=== PATIENT | female | born 1965 | race American Indian/Alaskan Native ===

== ENCOUNTER 2017-05-31 10:16 | Outpatient (CLI) | payer OTHER ==
--- NOTE | 2017-05-31 12:46 | XRay Report ---
XRAY LEFT KNEE 4 THREE VIEWS: 05/31/17 CLINICAL: Left knee pain FINDINGS: Mild osteopenia. Severe osteoarthritis of the medial joint space with complete loss of joint space and large osteophytes. Slight widening of the lateral joint space with lateral osteophytes. Mild varus deformity. Patellofemoral joint arthritis with osteophytes.Suspect a small joint effusion. No fracture or dislocation. Normal soft tissues. IMPRESSION: Osteoarthritis and probable small joint effusion.
== END 2017-05-31 10:17 | disposition home or self-care (01) ==
LOC: SPVIMAG 10:16
PROVIDERS: ATTEND Orthopaedic Surgery
DX: M17.12 Unilateral primary osteoarthritis, left knee (principal); M85.862 Other specified disorders of bone density and structure, left lower leg; M21.162 Varus deformity, not elsewhere classified, left knee

== ENCOUNTER 2021-08-01 09:19 | Outpatient (CLI) | payer OTHER ==
--- NOTE | 2021-08-01 10:22 | XRay Report ---
LUMBAR SPINE 5 VIEWS INDICATION: Z02.71 ENCOUNTER FOR DISABILITY DETERMINATION COMPARISON: None. FINDINGS: No acute, displaced fracture is seen. Alignment is within normal limits. No spondylolysis is seen on the oblique views. Small marginal osteophytes are noted. There is mild disc space narrowing at L5-S1. Disc spaces are ot herwise maintained. CONCLUSION: 1. No acute findings. 2. Mild spondylosis. Signer Name: Mika Gunter MD Signed: 08/01/2021 10:17 AM Workstation Name: [id number]
== END 2021-08-01 09:20 | disposition home or self-care (01) ==
LOC: XRAY 09:19
PROVIDERS: ATTEND Internal Medicine
DX: M47.817 Spondylosis without myelopathy or radiculopathy, lumbosacral region (principal); M48.07 Spinal stenosis, lumbosacral region
CPT/HCPCS: 72100

== ENCOUNTER 2021-08-01 10:17 | Emergency (ER) | payer MEDICAID, OTHER ==
--- NOTE | 2021-08-01 11:23 | Event Note ---
ED Screening Note ED Screening Note: here with 2 d hx dizziness pcp told her to come here pmh chronic pain on 2 meds at home (not narcotics) knee and back pain HR 50- no rate lowering meds pt obese This initial assessment/diagnostic orders/clinical plan/treatment(s) is/are subject to change based on patients health status, clinical progression and re- assessment by fellow clinical providers in the ED. Further treatment and workup at subsequent clinical providers discretion. Patient/guardian urged not to elope from the ED as their condition may be serious if not clinically assessed and managed. Initial orders include: ekg labs
[2021-08-01] MEDS ORDERED: MECLIZINE 25 MG TAB PO ONE (11:40)
--- NOTE | 2021-08-01 11:55 | Emergency Department Report ---
ED Dizziness HPI - General Chief Complaint: Dizziness Stated Complaint: DIZZINESS Time Seen by Provider: 08/01/21 11:11 Source: patient Mode of arrival: Ambulatory Limitations: No Limitations - History of Present Illness Initial Comments: 56-year-old female presents to the hospital with complaints of dizziness/room spinning sensation since yesterday. Symptoms worse with walking and movement. Patient has chronic left ear problems with decreased hearing. Patient is followed by ENT and is currently taking allergy medication to help with symptoms. Patient has nauseous with episodes without vomiting. She denies headache, chest pain, shortness of breath, abdominal pain, nausea, and vomiting. Patient's current medications include Levocetirizine for allergies and Tizanidine 4mg qhs muscle relaxant. - Related Data Previous Rx's Medication Instructions Recorded Last Taken Type Meclizine [Antivert] 25 mg PO TID PRN #30 tab 08/01/21 Unknown Rx Allergies Allergy/AdvReac Type Severity Reaction Status Date / Time Penicillins Allergy Nausea Verified 08/01/21 10:58 ED Review of Systems ROS: Stated complaint: DIZZINESS Other details as noted in HPI Comment: All other systems reviewed and negative ED Past Medical Hx - Medications Home Medications: Home Medications Medication Instructions Recorded Confirmed Last Taken Type Meclizine [Antivert] 25 mg PO TID PRN #30 tab 08/01/21 Unknown Rx ED Physical Exam - General Limitations: No Limitations - Other Other exam information: General: No acute distress Head: Atraumatic Eyes: normal appearance, mild dizziness with left gaze without nystagmus ENT: Moist mucous membranes, bilateral TMs Neck: Normal appearance, no midline tenderness Chest: Clear to auscultation bilaterally CV: Regular rate and rhythm Abdomen: Soft, normal bowel sounds, nontender, nondistended, no rebound or guarding Back: Normal inspection Extremity: Normal inspection, full range of motion Neuro: Alert O x 3, no facial asymmetry, speech clear, no gross motor sensory deficit, [id number] function at Psych: Appropriate behavior Skin: No rash ED Course Vital Signs 08/01/21 10:59 Temperature 97.8 F Pulse Rate 66 Respiratory 18 Rate Blood Pressure 144/91 O2 Sat by Pulse 99 Oximetry ED Medical Decision Making - Lab Data Result diagrams: 08/01/21 11:46 08/01/21 11:46 Lab Results 08/01/21 08/01/21 08/01/21 Range/Units 11:46 11:46 11:49 WBC 3.7 L (4.5-11.0) K/mm3 RBC 4.65 (3.65-5.03) M/mm3 Hgb 13.6 (10.1-14.3) gm/dl Hct 41.9 (30.3-42.9) % MCV 90 (79-97) fl MCH 29 (28-32) pg MCHC 33 (30-34) % RDW 13.9 (13.2-15.2) % Plt Count 127 L (140-440) K/mm3 Lymph % (Auto) 48.2 H (13.4-35.0) % [place] % (Auto) 5.9 (0.0-7.3) % Eos % (Auto) 1.6 (0.0-4.3) % Baso % (Auto) 0.4 (0.0-1.8) % Lymph # (Auto) 1.8 (1.2-5.4) K/mm3 [place] # (Auto) 0.2 (0.0-0.8) K/mm3 Eos # (Auto) 0.1 (0.0-0.4) K/mm3 Baso # (Auto) 0.0 (0.0-0.1) K/mm3 Seg Neutrophils % 43.9 (40.0-70.0) % Seg Neutrophils # 1.6 L (1.8-7.7) K/mm3 Sodium 148 H (137-145) mmol/L Potassium 4.9 (3.6-5.0) mmol/L Chloride 107.5 H (98-107) mmol/L Carbon Dioxide 28 (22-30) mmol/L Anion Gap 17 mmol/L BUN 11 (7-17) mg/dL Creatinine 0.8 (0.6-1.2) mg/dL Estimated GFR > 60 ml/min BUN/Creatinine Ratio 14 % Glucose 100 (65-100) mg/dL Calcium 9.4 (8.4-10.2) mg/dL Total Bilirubin 0.50 (0.1-1.2) mg/dL AST 11 (5-40) units/L ALT 7 (7-56) units/L Alkaline Phosphatase 80 (35-129) units/L Troponin T < 0.010 (0.00-0.029) ng/mL Total Protein 7.9 (6.3-8.2) g/dL Albumin 4.2 (3.9-5) g/dL Albumin/Globulin Ratio 1.1 % TSH 1.070 (0.270-4.200) mlU/mL Free T4 1.24 (0.76-1.46) ng/dL Urine Color (Yellow) Urine Turbidity (Clear) Urine pH (5.0-7.0) Ur Specific [place] (1.003-1.030) Urine Protein (Negative) mg/dL Urine Glucose (UA) (Negative) mg/dL Urine Ketones (Negative) mg/dL Urine Blood (Negative) Urine Nitrite (Negative) Ur Reducing Substances Urine Bilirubin (Negative) Urine Ictotest Urine Urobilinogen (<2.0) mg/dL Ur Leukocyte Esterase (Negative) Urine WBC (Auto) (0.0-6.0) /HPF Urine RBC (Auto) (0.0-6.0) /HPF 08/01/21 Range/Units 12:12 WBC (4.5-11.0) K/mm3 RBC (3.65-5.03) M/mm3 Hgb (10.1-14.3) gm/dl Hct (30.3-42.9) % MCV (79-97) fl MCH (28-32) pg MCHC (30-34) % RDW (13.2-15.2) % Plt Count (140-440) K/mm3 Lymph % (Auto) (13.4-35.0) % [place] % (Auto) (0.0-7.3) % Eos % (Auto) (0.0-4.3) % Baso % (Auto) (0.0-1.8) % Lymph # (Auto) (1.2-5.4) K/mm3 [place] # (Auto) (0.0-0.8) K/mm3 Eos # (Auto) (0.0-0.4) K/mm3 Baso # (Auto) (0.0-0.1) K/mm3 Seg Neutrophils % (40.0-70.0) % Seg Neutrophils # (1.8-7.7) K/mm3 Sodium (137-145) mmol/L Potassium (3.6-5.0) mmol/L Chloride (98-107) mmol/L Carbon Dioxide (22-30) mmol/L Anion Gap mmol/L BUN (7-17) mg/dL Creatinine (0.6-1.2) mg/dL Estimated GFR ml/min BUN/Creatinine Ratio % Glucose (65-100) mg/dL Calcium (8.4-10.2) mg/dL Total Bilirubin (0.1-1.2) mg/dL AST (5-40) units/L ALT (7-56) units/L Alkaline Phosphatase (35-129) units/L Troponin T (0.00-0.029) ng/mL Total Protein (6.3-8.2) g/dL Albumin (3.9-5) g/dL Albumin/Globulin Ratio % TSH (0.270-4.200) mlU/mL Free T4 (0.76-1.46) ng/dL Urine Color Yellow (Yellow) Urine Turbidity Clear (Clear) Urine pH 7.5 H (5.0-7.0) Ur Specific [place] 1.005 (1.003-1.030) Urine Protein <15 mg/dl (Negative) mg/dL Urine Glucose (UA) Negative (Negative) mg/dL Urine Ketones Negative (Negative) mg/dL Urine Blood Trace (Negative) Urine Nitrite Negative (Negative) Ur Reducing Substances Not Reportable Urine Bilirubin Negative (Negative) Urine Ictotest Not Reportable Urine Urobilinogen < 2.0 (<2.0) mg/dL Ur Leukocyte Esterase Negative (Negative) Urine WBC (Auto) 1.0 (0.0-6.0) /HPF Urine RBC (Auto) 6.0 (0.0-6.0) /HPF - EKG Data -: EKG Interpreted by Vt EKG shows normal: sinus rhythm, ST-T waves (No STEMI, no ST elevation AK) Rate: bradycardia (50) - Medical Decision Making As per patient is medication side effect review since tizanidine can cause severe bradycardia but may also cause rebound hypertension and tachycardia if discontinued. Common reactions include dizziness and bradycardia. Patient does not endorse lightheadedness with walking, shortness of breath, chest pain, or near syncope After receiving meclizine 25 mg she no longer feels dizzy/room spinning when looking upward She is scheduled to see ENT tomorrow for her allergy shot. She was instructed to discontinue her Levocetirizine while taking meclizine since it also is an antihistamine She will be provided a copy of her labs to take to her doctor follow-up tomorrow Critical Care Time: No Critical care attestation.: If time is entered above; I have spent that time in minutes in the direct care of this critically ill patient, excluding procedure time. ED Disposition Clinical Impression: Vertigo, Bradycardia Disposition: 01 HOME / SELF CARE / HOMELESS Is pt being admited?: No Does the pt Need Aspirin: No Condition: Stable Instructions: Bradycardia, Adult, Dizziness, [id number] Additional Instructions: Take the medication as prescribed. Follow-up with your doctor or doctor/clinic provided. Follow-up with the ENT doctor, primary care doctor, and cardiac follow-up provided as well. Please note that the Tizanidine may cause a slow heart rate while taking the medication and may cause a fast heart rate when stopped abruptly. Return if symptoms worsen as indicated by your discharge instructions. Prescriptions: Meclizine [Antivert] 25 mg PO TID PRN #30 tab PRN Reason: Vertigo Referrals: [facility]PE ROD,FAMILY [Other] - 3-5 Days Time of Disposition: 14:30
[2021-08-01 12:25] LABS: Basophils % (Auto) 0.4 % (0.0-1.8); Eosinophils # (Auto) 0.1 K/mm3 (0.0-0.4); Eosinophils % (Auto) 1.6 % (0.0-4.3); Hematocrit 41.9 % (30.3-42.9); Hemoglobin 13.6 gm/dl (10.1-14.3); Lymphocytes # (Auto) 1.8 K/mm3 (1.2-5.4); Lymphocytes % (Auto) 48.2 % (13.4-35.0); Mean Corpuscular HGB Conc 33 % (30-34); Mean Corpuscular Volume 90 fl (79-97); Monocytes # (Auto) 0.2 K/mm3 (0.0-0.8); Monocytes % (Auto) 5.9 % (0.0-7.3); Platelet Count 127 K/mm3 (140-440); Red Blood Count 4.65 M/mm3 (3.65-5.03); Red Cell Distribution Width 13.9 % (13.2-15.2)
[2021-08-01 12:33] LABS: Alanine Aminotransferase 7 units/L (7-56); Albumin 4.2 g/dL (3.9-5); BUN/Creatinine Ratio 14; Blood Urea Nitrogen 11 mg/dL (7-17); Calcium 9.4 mg/dL (8.4-10.2); Hemolysis Index 11
[2021-08-01 13:09] LABS: Free T4 (Free Thyroxine) 1.24 ng/dL (0.76-1.46)
[2021-08-01 14:00] LABS: Bilirubin,Urine Negative (Negative); Blood,Urine Trace (Negative); Color,Urine Yellow (Yellow); PH,Urine 7.5 (5.0-7.0)
[2021-08-01 14:01] LABS: Protein,Urine <15 mg/dL mg/dL (Negative); Urobilinogen,Urine < 2.0 mg/dL (<2.0)
--- NOTE | 2021-08-01 14:16 | Electrocardiograph Report ---
[facility] Test Date: 2021-08-01 Test Time: 11:13:10 Pat Name: REYNALDO BAH Department: Room: Gender: F Senior Electronics Design Engineer: MAZIN : 1965 Requested By: WILDER HUBBARD Order Number: [id number] Reading MD: Birgit Coy Measurements Intervals [place] Rate: 50 P: 34 ID: [id number] QRS: 9 QRSD: 86 T: 22 QT: 433 QTc: 397 Interpretive Statements Sinus bradycardia Probable left atrial enlargement No previous ECG available for comparison Electronically Signed On 08-01-2021 14:16:27 EST by Birgit Coy
[2021-08-01 15:36] VITALS: BP 147/82
== END 2021-08-01 15:36 | disposition home or self-care (01) ==
LOC: ED 10:17
DX: R42 Dizziness and giddiness (principal); R00.1 Bradycardia, unspecified
CPT/HCPCS: 36415; 80053; 81001; 84439; 84443; 84484; 85025; 93005; 93010; 99283